=== PATIENT | male | born 1960 | race Caucasian/White ===

== ENCOUNTER → 2020-03-02 | Outpatient (CLI) | payer OTHER ==
[~2020-03-02] MED LIST: HYDROCODONE BIT1 T11 PO
== END | disposition home or self-care (01) ==
LOC: COVID19 11:31
DX: Z01.812 Encounter for preprocedural laboratory examination (principal); Z20.828 Contact with and (suspected) exposure to other viral communicable diseases

== ENCOUNTER → 2023-01-16 | Outpatient (CLI) | payer OTHER | END | disposition home or self-care (01) | LOC: US 02:24 | PROVIDERS: ATTEND Nurse Practitioner | DX: N63.20 Unspecified lump in the left breast, unspecified quadrant (principal) ==

== ENCOUNTER 2024-10-06 09:48 | Observation (INO) | payer MEDICARE ==
[~2024-10-06] VITALS: Wt 98.0 kg
[2024-10-06 09:59] VITALS: BP 161/88
[2024-10-06] MEDS ORDERED: SODIUM CHLORIDE 0.9% 1,000 ML IV ONE ×3 (10:15→11:31)
[2024-10-06 10:19] LABS: BASO # 0.1 10*3/uL (0.0-0.1); BASO % 0.8 % (0.0-1.0); EOS # 0.2 10*3/uL (0.0-0.4); EOS % 2.3 % (1.0-4.0); HEMATOCRIT 40.9 % (42.0-52.0); MEAN CELL VOLUME 77.8 fl (80.0-94.0); MEAN CORPUSCULAR HGB 23.6 pg (27.0-31.0); MEAN CORPUSCULAR HGB CONC 30.3 g/dl (33.0-37.0); MEAN PLATELET VOLUME 9.9 fl (9.6-12.3); MONO # 0.7 10*3/uL (0.1-1.0); MONO % 10.8 % (3.0-9.0); NEUT # 4.7 10*3/uL (2.3-7.9); NEUT % 71.9 % (47.0-73.0); PLATELET COUNT AUTOMATED 205 10*3/uL (130-400); RED BLOOD COUNT 5.26 10*6/uL (4.50-5.90); RED CELL DISTRI WIDTH 16.7 % (0-14.5); WHITE BLOOD COUNT 6.5 10*3/uL (4.8-10.8)
[2024-10-06 10:39] LABS: BUN 11 mg/dl (9-23); CHLORIDE 104 mmol/L (98-107); POTASSIUM 3.9 mmol/L (3.4-5.1)
[2024-10-06] MEDS ORDERED: Ondansetron Hydrochloride 4 MG/2 ML VIAL IV PRN (10:55)
[2024-10-06] MEDS ORDERED: Ketorolac Tromethamine 15 MG/ML VIAL IV PRN (10:55)
[2024-10-06] MEDS ORDERED: MORPHINE Sulfate 2 MG/ML SYR IV PRN (10:55)
[2024-10-06 11:04] VITALS: BP 128/77
[2024-10-06 12:21] VITALS: BP 104/75
[2024-10-06 12:36] VITALS: BP 115/77
[2024-10-06 12:51] VITALS: BP 136/84
[2024-10-06] MEDS ORDERED: Lidocaine Hydrochloride 5 ML VIAL IV ONE (17:10)
[2024-10-06] MEDS ORDERED: PROPOFOL 200 MG/20 ML VIAL IV ONE (17:10)
[2024-10-06] MEDS ORDERED: fentaNYL CITRATE 100 MCG/2 ML VIAL IV ONE (17:10)
== END 2024-10-06 15:25 | disposition home or self-care (01) ==
LOC: ED 09:48 → EDHOLD 10:25
PROVIDERS: Emergency Medicine; ADMIT Internal Medicine; ATTEND Internal Medicine
DX: T18.198A Other foreign object in esophagus causing other injury, initial encounter (principal); R73.9 Hyperglycemia, unspecified; D50.9 Iron deficiency anemia, unspecified; R00.0 Tachycardia, unspecified; Z87.19 Personal history of other diseases of the digestive system; W44.8XXA Other foreign body entering into or through a natural orifice, initial encounter; Y93.89 Activity, other specified; Y92.89 Other specified places as the place of occurrence of the external cause; Y99.8 Other external cause status